=== PATIENT | male | born 1955 | race Caucasian/White ===

== ENCOUNTER → 2020-01-08 | Outpatient (CLI) | payer OTHER | LOC: CAT 13:28 | PROVIDERS: ATTEND Internal Medicine Cardiovascular Disease | DX: Z13.6 Encounter for screening for cardiovascular disorders (principal); E78.00 Pure hypercholesterolemia, unspecified; I25.10 Atherosclerotic heart disease of native coronary artery without angina pectoris ==

== ENCOUNTER → 2020-01-08 | Outpatient (CLI) | payer BC, OTHER | LOC: SJCVCIMAG 13:05 | PROVIDERS: ATTEND Internal Medicine Cardiovascular Disease | DX: I08.3 Combined rheumatic disorders of mitral, aortic and tricuspid valves (principal); I48.91 Unspecified atrial fibrillation ==

== ENCOUNTER → 2020-01-12 | Outpatient (CLI) | payer BC, OTHER | LOC: SJCVCIMAG 07:06 | PROVIDERS: ATTEND Internal Medicine Cardiovascular Disease | DX: I48.91 Unspecified atrial fibrillation (principal); I49.3 Ventricular premature depolarization; I87.2 Venous insufficiency (chronic) (peripheral); Z79.899 Other long term (current) drug therapy ==

== ENCOUNTER → 2020-01-28 | Outpatient (CLI) | payer BC, OTHER ==
[~2020-01-28] MED LIST: DILTIAZEM ER180 M2 PO; EDARBI40 MG PO; FUROSEMIDE 20 M20 MG PO; PREVACID30 MG PO; TOPROL XL50 MG PO; TRICOR145 MG PO; XARELTO20 MG PO; ZOCOR 20 MG TAB20 M1 PO
== END ==
LOC: LAB 08:27
PROVIDERS: ATTEND Internal Medicine Cardiovascular Disease
DX: Z20.828 Contact with and (suspected) exposure to other viral communicable diseases (principal)

== ENCOUNTER → 2020-01-30 | Outpatient (CLI) | payer BC, OTHER ==
[~2020-01-30] VITALS: Ht 167.6 cm; Wt 111.1 kg
[2020-01-30 07:05] VITALS: BP 162/96
--- NOTE | 2020-01-30 08:35 | NUR ---
PT RESTING ON CART, DROWSY BUT AWAKE. ANSWERS QUICKLY TO VOICE, ORIENTED X4. SPOUSE AT BEDSIDE. VSS.
== END | disposition home or self-care (01) ==
LOC: CATH 01-28 07:56
PROVIDERS: ATTEND Internal Medicine Cardiovascular Disease
DX: I48.91 Unspecified atrial fibrillation (principal); I08.3 Combined rheumatic disorders of mitral, aortic and tricuspid valves; I10 Essential (primary) hypertension; E78.00 Pure hypercholesterolemia, unspecified; E78.5 Hyperlipidemia, unspecified; G47.33 Obstructive sleep apnea (adult) (pediatric); Z98.890 Other specified postprocedural states; Z82.49 Family history of ischemic heart disease and other diseases of the circulatory system; Z79.01 Long term (current) use of anticoagulants; Z79.899 Other long term (current) drug therapy

== ENCOUNTER → 2020-02-26 | Outpatient (CLI) | payer BC, OTHER ==
[~2020-02-26] MED LIST changes: +TAMBOCOR 100 M100 M1 PO
== END ==
LOC: LAB 08:15
PROVIDERS: ATTEND Internal Medicine Cardiovascular Disease
DX: Z01.812 Encounter for preprocedural laboratory examination (principal); Z20.828 Contact with and (suspected) exposure to other viral communicable diseases

== ENCOUNTER → 2020-03-02 | Outpatient (CLI) | payer BC, OTHER ==
[~2020-03-02] VITALS: Ht 167.6 cm; Wt 111.1 kg
[2020-03-02 10:52] VITALS: BP 185/94
[2020-03-02 11:07] LABS: HEMATOCRIT 48.3 % (42.0-52.0); MCH 29.4 pg (26.0-34.0); PLATELET COUNT 181 thou/uL (150-400); RBC 5.43 mil/uL (4.50-6.00); RDW 13.9 % (10.5-14.5); WBC 6.6 thou/uL (4.0-11.0)
[2020-03-02 11:18] LABS: APTT 44.8 Seconds (24.5-32.8); INR 1.8; PROTIME 18.4 Seconds (9.3-11.4)
[2020-03-02 11:26] LABS: CREATININE 1.2 mg/dL (0.7-1.3); POTASSIUM 4.3 mmol/L (3.5-5.1)
[2020-03-02 11:31] LABS: ALBUMIN 3.6 g/dL (3.4-5.0); TOTAL BILIRUBIN 1.1 mg/dL (0.2-1.0); TOTAL PROTEIN 7.2 g/dL (6.4-8.2)
[2020-03-02 11:52] LABS: ABSOLUTE NEUTROPHILS 3.9 thou/uL (1.4-8.2); ATYPICAL LYMPHS 4 %; PLATELET ESTIMATE NORMAL
== END | disposition home or self-care (01) ==
LOC: CATH 10:18
PROVIDERS: ATTEND Internal Medicine Cardiovascular Disease
DX: I48.91 Unspecified atrial fibrillation (principal); I10 Essential (primary) hypertension; G47.33 Obstructive sleep apnea (adult) (pediatric); E11.9 Type 2 diabetes mellitus without complications; Z98.890 Other specified postprocedural states; Z79.899 Other long term (current) drug therapy; Z82.49 Family history of ischemic heart disease and other diseases of the circulatory system; Z79.01 Long term (current) use of anticoagulants

== ENCOUNTER → 2020-04-19 | Outpatient (CLI) | payer BC, OTHER ==
[~2020-04-19] MED LIST changes: +DICLOFENAC SOD50 M1 PO; +VITRUM SENIOR1 EAC1 PO
== END ==
LOC: LAB
PROVIDERS: ATTEND Internal Medicine Cardiovascular Disease
DX: Z20.828 Contact with and (suspected) exposure to other viral communicable diseases (principal)

== ENCOUNTER → 2020-04-19 | Outpatient (CLI) | payer BC, OTHER ==
[2020-04-19 10:13] LABS: HEMATOCRIT 48.4 % (42.0-52.0); HEMOGLOBIN 16.1 gm/dL (14.0-18.0); MCH 28.7 pg (26.0-34.0); MCHC 33.3 g/dL (28.0-37.0); MCV 86.2 fL (80.0-100.0); PLATELET COUNT 189 thou/uL (150-400); RBC 5.62 mil/uL (4.50-6.00); RDW 14.5 % (10.5-14.5); WBC 8.4 thou/uL (4.0-11.0)
[2020-04-19 10:26] LABS: ABSOLUTE NEUTROPHILS 6.2 thou/uL (1.4-8.2); PLATELET ESTIMATE NORMAL
[2020-04-19 10:27] LABS: ALBUMIN 3.5 g/dL (3.4-5.0); CALCIUM 9.6 mg/dL (8.5-10.1); CREATININE 1.6 mg/dL (0.7-1.3); POTASSIUM 4.3 mmol/L (3.5-5.1); TOTAL BILIRUBIN 1.1 mg/dL (0.2-1.0); TOTAL PROTEIN 7.5 g/dL (6.4-8.2)
== END ==
LOC: CAT 09:53
PROVIDERS: ATTEND Internal Medicine Cardiovascular Disease
DX: I25.10 Atherosclerotic heart disease of native coronary artery without angina pectoris (principal); I48.91 Unspecified atrial fibrillation

== ENCOUNTER 2020-04-23 06:23 | Outpatient (CLI) | payer BC, OTHER ==
[~2020-04-23] VITALS: Ht 167.6 cm; Wt 118.2 kg
[2020-04-23] VITALS (12 sets, daily range): BP systolic 122–147; BP diastolic 66–90
[~2020-04-23 06:23] MED LIST changes: -DICLOFENAC SOD50 M1 PO; -VITRUM SENIOR1 EAC1 PO
[2020-04-23 07:48] LABS: HEMATOCRIT 46.6 % (42.0-52.0); HEMOGLOBIN 15.2 gm/dL (14.0-18.0); MCH 28.5 pg (26.0-34.0); MCHC 32.6 g/dL (28.0-37.0); MCV 87.5 fL (80.0-100.0); PLATELET COUNT 166 thou/uL (150-400); RBC 5.33 mil/uL (4.50-6.00); RDW 14.6 % (10.5-14.5); WBC 6.4 thou/uL (4.0-11.0)
[2020-04-23] MEDS ORDERED: DICLOFENAC SOD50 M1 PO (07:48)
[2020-04-23] MEDS ORDERED: VITRUM SENIOR1 EAC1 PO (08:03)
[2020-04-23 08:05] LABS: CALCIUM 9.1 mg/dL (8.5-10.1); CREATININE 1.6 mg/dL (0.7-1.3); POTASSIUM 4.2 mmol/L (3.5-5.1)
[2020-04-23 08:11] LABS: ALBUMIN 3.4 g/dL (3.4-5.0); TOTAL BILIRUBIN 0.6 mg/dL (0.2-1.0); TOTAL PROTEIN 7.2 g/dL (6.4-8.2)
[2020-04-23 08:12] LABS: APTT 24.6 Seconds (24.5-32.8); INR 1.1; PROTIME 11.3 Seconds (9.3-11.4)
[2020-04-23 09:16] LABS: ABSOLUTE NEUTROPHILS 3.2 thou/uL (1.4-8.2); PLATELET ESTIMATE NORMAL
--- NOTE | 2020-04-23 14:24 | NUR ---
PT. ON UNIT POST PROCEDURE. AT BEDSIDE. ORITNETED HIM TO SURROUNDINGS AND ROOM, UNIT PROCEDURES WELL. DENIES ANY CHEST PAIN AND NOT SOB. C/O LOWER BACK PAIN=2 "FROM LYING FLAT ALL DAY". EXPLAINED TO HIM WHY HE HAS TO DO SO FOR HIS PROCEDURE AND NO COMPLICATIONS. IV SITE, C,D,I NO INFILTRATION. RIGHT GROIN IS HEMATOMA FREE, SOFT TO PALPATION, LOCK IN PLACE WITH A SUTURE.
--- NOTE | 2020-04-23 18:32 | NUR ---
OFF BEDREST CATHTER REMOVED PER NURSING STAFF. NO HEMATOMA, LEGS ARE WARM TO TOUCH, EDEMA ON LOWER EXTREMETIES IS 3+ AND HE SAID, 'THEY ARE LIKE THIS ALL THE TIME, RED SWOLLEN, POOR FOOT CARE AND HYGIENE OVERALL. AFIB CONTROLLED RATE. ON ROOM AIR. BLOOD RPESSURE STABLE, HEMODYNAMICALLY STABLE. UP IN CHAIR FINISHED HIS DINNER NOW AND ALL QUESTIONS ON POC ANSWERED.
[2020-04-24 00:25] VITALS: BP 127/73
[2020-04-24 04:41] VITALS: BP 153/89
--- NOTE | 2020-04-24 06:22 | NUR ---
ASSUMED CARE OF THE PATIENT AT 1900; AOX4 AND AMBULATES STEADY FROM CHAIR TO TOILET; NO C/O OF PAIN; RT GROIN SITE C/D/I; SLEPT QUIETLY IN THE CHAIR THROUGHOUT THE NOC; ON ROOM AIR WITH STABLE OXYGEN SATs; SBP ELEVATED, 140-180s, SEE VITAL SIGNS IN REVIEW FOR SPECIFICS; AFIB/ST ON THE MONITOR; PLAN IS FOR PATIENT TO D/C TO HOME TODAY; WILL CONTINUE TO MONITOR.
[2020-04-24 08:15] VITALS: BP 153/97
[2020-04-24 08:32] VITALS: BP 153/97
[2020-04-24 10:30] VITALS: BP 153/97
--- NOTE | 2020-04-24 14:50 | NUR ---
PT CARE ASSUMED AT 0700. ASSESSMENT CHARTED. MEDICATION CHARTED. RFA IV. PT TO BE DISCHARGED HOME. TELEMETRY D/C'D. IV D/C'D. DISCHARGE PAPERWORK SIGNED.
--- NOTE | 2020-04-30 10:42 | P ---
[facility] [place] [address] PROCEDURE REPORT Name: MARAH BARRIOS [id number] Admission: 04/23/20 Attend Phys: Maged Buchanan MD Discharge: 04/24/20 Date of : 57 Report #: [id number] THIS REPORT FOR: cc: AINSLEY BECKETT - Family physician unknown Maged Buchanan MD ~ CC: ELIZA unknown Maged BECKETT DATE OF SERVICE: 04/23/2020 AFIB ABLATION PREOPERATIVE DIAGNOSIS: Atrial fibrillation. POSTOPERATIVE DIAGNOSIS: Atrial fibrillation. PROCEDURES PERFORMED: 1. AFib ablation, CPT code 11626. 2. 3-D mapping, CPT code 94357. 3. Intracardiac echo, CPT code 75205. 4. Second pathway ablation 06667. ANESTHESIA: The patient underwent general anesthesia with no anesthesia related complications. DESCRIPTION OF PROCEDURE: The patient was brought to the EP laboratory in a fasting nonsedated state and prepped and draped in a sterile fashion. I obtained access of the right femoral vein x 3, placing an 8, 9 and 7-Liberian short sheath. Next, under fluoroscopy, a decapolar catheter was placed in the coronary sinus for left atrial pacing and recording. An ICE catheter was placed in the right atrium. Next, using intracardiac ultrasound, 3-D geometry of the left atrium was created with evidence of 2 left and 2 right pulmonary veins and this was merged with a cardiac CT scan. The patient was systemically heparinized and a transseptal was performed using a SL1 sheath and a Boyd needle. This was straightforward and I then exchanged the SL1 sheath for the cryo sheath and placed the Lasso catheter in the left atrium. At baseline, the patient was in atrial fibrillation. Next, a 3-D voltage map and geometry of the left atrium was created and we started isolating the pulmonary veins. The patient underwent 2 initial freezes of a minute duration, but due to poor temperatures, I came off the left superior pulmonary vein. I then performed a 300 second followed by a 3-minute freeze. The vein isolated during the third and fourth freeze. Next, I turned my attention to the left inferior pulmonary vein. This vein underwent 5 freezes. The first 3 freezes I came off early due to poor attempts and I actually moved on to the right veins and came back to the [address] [address] PROCEDURE REPORT Name: MARAH BARRIOS Room #: DEP [facility] Matos#: [id number] Admission: 04/23/20 Attend Phys: Maged Buchanan MD Discharge: 04/24/20 Date of : 57 Report #: [id number] left inferior vein. We performed a 4-minute freeze, which resulted in isolation in 25 seconds and an additional freeze of 4 minutes duration. I then turned my attention to the right superior pulmonary vein. This underwent a 3-minute freeze, which resulted in isolation in the right inferior pulmonary vein. Underwent 3 freezes. First freeze I came off after 60 seconds and the third and fourth freeze were each of 4 minutes duration. Next, I created a repeat voltage map of the left atrium and there was evidence of isolation of all 4 pulmonary veins. The patient underwent 200 joule synchronized cardioversion. An EP study was performed. AV block was noted at 490 milliseconds. Atrial ERP was noted at 320 milliseconds at a [address] cycle length. Next, with aggressive atrial burst pacing, the patient went into atrial flutter, which appeared to be right sided in nature with negative sawtooth flutter waves in the inferior leads, proximal and distal activation along the CS and a tachycardia cycle length of 250 milliseconds. As such, the patient was prepped for atrial flutter ablation. Ablation was performed using an 8 mm ablation catheter via the ramp sheath. Once block was achieved, the procedure was then concluded. Post-ablation, the transisthmus conduction time was 200 milliseconds with an activation sequence consistent with bidirectional block. As such, all catheters and sheaths were pulled. Hemostasis was obtained using intracardiac ultrasound. There was no evidence of a pericardial effusion. CONCLUSIONS: 1. Successful AFib ablation with isolation of the pulmonary veins. 2. Successful atrial flutter ablation with bidirectional block. <ELECTRONICALLY SIGNED> By: Maged Buchanan MD 04/30/20 [id number] Maged Buchanan MD /nt
== END 2020-04-24 11:08 | disposition home or self-care (01) ==
LOC: CATH → 2N 12:44 → CATH 13:08
PROVIDERS: ATTEND Internal Medicine Cardiovascular Disease
DX: I48.91 Unspecified atrial fibrillation (principal); I10 Essential (primary) hypertension; E78.5 Hyperlipidemia, unspecified; G47.33 Obstructive sleep apnea (adult) (pediatric); J44.9 Chronic obstructive pulmonary disease, unspecified; E66.09 Other obesity due to excess calories; Z98.890 Other specified postprocedural states; Z79.899 Other long term (current) drug therapy; Z68.41 Body mass index [BMI] 40.0-44.9, adult
CPT/HCPCS: 10081; 62110; 62900; 65020; 65040; 70005

== ENCOUNTER → 2020-04-27 | Outpatient (CLI) | payer BC, OTHER ==
[~2020-04-27] MED LIST changes: +DICLOFENAC SOD50 M1 PO; +VITRUM SENIOR1 EAC1 PO
== END ==
LOC: SJCVCIMAG 14:52
PROVIDERS: ATTEND Internal Medicine Cardiovascular Disease
DX: I08.1 Rheumatic disorders of both mitral and tricuspid valves (principal); I48.91 Unspecified atrial fibrillation